=== PATIENT | male | born 1950 | race Caucasian/White ===

== ENCOUNTER 2023-05-05 10:01 | Inpatient (IN) | payer BC, OTHER ==
[2023-05-05 12:49] LABS: EOS % 3.7 % (0-4.5); HEMATOCRIT 22.2 % (35.4-49); LYMPH % 14.9 % (8-40); MCH 29.3 pg (25.7-33.7); MCHC 31.2 g/dl (32.0-35.9); MEAN CELL VOLUME 94.1 fl (80-96); MEAN PLT VOLUME 8.7 fl (7.5-11.1); MONO % 8.2 % (3.8-10.2); NEUT % 72.2 % (42.8-82.8); PLATELET COUNT 193 10^3/uL (134-434); RBC 2.36 M/mm3 (4.00-5.60); RDW 19.2 % (11.9-15.9); RETICULOCYTES 3.55 % (0.5-1.5); WHITE BLOOD COUNT 7.6 K/mm3 (4.0-10.0)
[2023-05-05 12:50] LABS: INR 1.91 (0.83-1.09)
[2023-05-05 12:53] LABS: ACTIVATED PTT 37.2 SECONDS (25.2-36.5); HEMOGLOBIN 6.9 GM/dL (11.7-16.9)
[2023-05-05 13:05] LABS: CALCIUM 9.2 mg/dL (8.5-10.1)
[2023-05-05 13:06] LABS: ALBUMIN 2.4 g/dl (3.4-5.0); BLOOD UREA NITROGEN 89.2 mg/dL (7-18)
[2023-05-05 13:09] LABS: CREATININE 1.8 mg/dL (0.55-1.3)
[2023-05-05 13:10] LABS: BILIRUBIN,TOTAL 0.6 mg/dL (0.2-1); TOT PROT 7.1 g/dl (6.4-8.2)
[2023-05-05] MEDS ORDERED: PANTOPRAZOLE SODIUM 40 MG/100 ML BAG IVPB ONE (15:53)
[2023-05-05] MEDS: PANTOPRAZOLE SODIUM 40 MG VIAL IVPUSH ONE (16:14)
[2023-05-05] MEDS ORDERED: METOPROLOL TARTRATE 50 MG TABLET (FP) ONE (21:40)
[2023-05-05] MEDS ORDERED: ATORVASTATIN CA 40 MG TABLET (FP) ONE (21:41)
[2023-05-05] MEDS: ATORVASTATIN CA 40 MG TABLET (FP) PO SCH (21:49)
[2023-05-05] MEDS: METOPROLOL TARTRATE 50 MG TABLET (FP) PO SCH (21:50)
[2023-05-05] MEDS: INSULIN ASPART SLIDING SCALE (NOVOLOG) 1 VIAL SQ SCH (21:50)
[2023-05-06 10:00] LABS: BASO % 0.8 % (0-2.0); EOS % 3.4 % (0-4.5); HEMATOCRIT 27.6 % (35.4-49); HEMOGLOBIN 8.8 GM/dL (11.7-16.9); LYMPH % 14.5 % (8-40); MCH 29.7 pg (25.7-33.7); MCHC 31.9 g/dl (32.0-35.9); MEAN CELL VOLUME 93.1 fl (80-96); MEAN PLT VOLUME 8.8 fl (7.5-11.1); MONO % 7.4 % (3.8-10.2); NEUT % 73.9 % (42.8-82.8); PLATELET COUNT 213 10^3/uL (134-434); RBC 2.96 M/mm3 (4.00-5.60); RDW 18.9 % (11.9-15.9)
[2023-05-06] MEDS: POLYETHYLENE GLYCOL (HEALTHYLAX) 3350 17 GM PACKET PO SCH (10:06)
[2023-05-06] MEDS: SEVELAMER CARBONATE 800 MG TAB (FP) PO SCH (10:06)
[2023-05-06] MEDS: BUPRENORPHINE/NALOXONE 2 MG/0.5 MG FILM PACKET SL SCH (10:06)
[2023-05-06 11:07] LABS: POTASSIUM 4.5 mmol/L (3.5-5.1)
[2023-05-06 11:09] LABS: ALBUMIN 2.7 g/dl (3.4-5.0); BLOOD UREA NITROGEN 75.5 mg/dL (7-18)
[2023-05-06 11:12] LABS: CREATININE 1.9 mg/dL (0.55-1.3); PHOSPHOROUS 3.2 mg/dL (2.5-4.9)
[2023-05-06 11:14] LABS: BILIRUBIN,TOTAL 0.8 mg/dL (0.2-1); TOT PROT 7.9 g/dl (6.4-8.2)
[2023-05-06] MEDS: PATIENT'S OWN MEDICATION (NON-FORMULARY) (Senna Leaf Extract [Senna] 176 MG/5 ML Syrup) GT SCH (12:51)
[2023-05-06] MEDS: PANTOPRAZOLE SODIUM 40 MG VIAL IVPUSH SCH (13:06)
[2023-05-06] MEDS: BACITRACIN ZINC 15 GM TUBE TOPICAL OINTMENT TP SCH (15:30)
[2023-05-06] MEDS ORDERED: INSULIN (NOVOLOG) ASPART 100 UNITS/ML 10ML VIAL ONE (21:26)
[2023-05-07 08:25] LABS: EOS % 3.3 % (0-4.5); LYMPH % 15.3 % (8-40); MCH 30.7 pg (25.7-33.7); MCHC 33.4 g/dl (32.0-35.9); MEAN CELL VOLUME 91.8 fl (80-96); MEAN PLT VOLUME 8.6 fl (7.5-11.1); MONO % 9.2 % (3.8-10.2); NEUT % 71.2 % (42.8-82.8); PLATELET COUNT 182 10^3/uL (134-434); POTASSIUM 4.6 mmol/L (3.5-5.1); RBC 2.62 M/mm3 (4.00-5.60); RDW 18.5 % (11.9-15.9); WHITE BLOOD COUNT 7.7 K/mm3 (4.0-10.0)
[2023-05-07 08:34] LABS: CALCIUM 8.5 mg/dL (8.5-10.1)
[2023-05-07 08:35] LABS: ALBUMIN 2.6 g/dl (3.4-5.0); BLOOD UREA NITROGEN 71.4 mg/dL (7-18); MAGNESIUM 2.2 mg/dL (1.8-2.4)
[2023-05-07 08:37] LABS: CREATININE 1.7 mg/dL (0.55-1.3)
[2023-05-07 08:39] LABS: BILIRUBIN,TOTAL 0.8 mg/dL (0.2-1); TOT PROT 6.9 g/dl (6.4-8.2)
[2023-05-07 11:15] VITALS: BMI 24.5
[2023-05-07] MEDS ORDERED: INSULIN (NOVOLOG) ASPART 100 UNITS/ML 10ML VIAL ONE (12:04)
[2023-05-07 12:51] LABS: INR 1.51 (0.83-1.09); PROTHROMBIN TIME (PATIENT) 17.4 SEC (9.7-13.0)
[2023-05-07] MEDS: ACETAMINOPHEN 500 MG TABLET (FP) PO ONE (13:25)
[2023-05-07] MEDS: HEPARIN NA (PORCINE) 5,000 UNITS/ML 1ML VIAL SQ SCH (21:27)
[2023-05-08] MEDS: ACETAMINOPHEN 1000 MG/100 ML BAG IVPB ONE (05:35)
[2023-05-08 07:36] LABS: BASO % 0.8 % (0-2.0); EOS % 3.5 % (0-4.5); HEMATOCRIT 25.1 % (35.4-49); HEMOGLOBIN 8.1 GM/dL (11.7-16.9); MCHC 32.4 g/dl (32.0-35.9); MEAN CELL VOLUME 92.5 fl (80-96); MEAN PLT VOLUME 8.4 fl (7.5-11.1); NEUT % 74.7 % (42.8-82.8); PLATELET COUNT 191 10^3/uL (134-434); RBC 2.71 M/mm3 (4.00-5.60); RDW 18.9 % (11.9-15.9); WHITE BLOOD COUNT 8.1 K/mm3 (4.0-10.0)
[2023-05-08 07:41] LABS: INR 1.53 (0.83-1.09); PROTHROMBIN TIME (PATIENT) 17.7 SEC (9.7-13.0)
[2023-05-08 07:43] LABS: POTASSIUM 4.6 mmol/L (3.5-5.1)
[2023-05-08 07:47] LABS: ALBUMIN 2.4 g/dl (3.4-5.0); BLOOD UREA NITROGEN 66.4 mg/dL (7-18); CALCIUM 8.4 mg/dL (8.5-10.1); MAGNESIUM 2.1 mg/dL (1.8-2.4)
[2023-05-08 07:51] LABS: CREATININE 1.6 mg/dL (0.55-1.3)
[2023-05-08 07:53] LABS: BILIRUBIN,TOTAL 0.8 mg/dL (0.2-1); TOT PROT 6.7 g/dl (6.4-8.2)
[2023-05-09] MEDS ORDERED: INSULIN (NOVOLOG) ASPART 100 UNITS/ML 10ML VIAL ONE ×2 (06:32→09:13)
[2023-05-09 09:19] LABS: EOS % 2.9 % (0-4.5); HEMATOCRIT 26.3 % (35.4-49); HEMOGLOBIN 8.5 GM/dL (11.7-16.9); LYMPH % 16.9 % (8-40); MCH 30.3 pg (25.7-33.7); MCHC 32.4 g/dl (32.0-35.9); MEAN CELL VOLUME 93.4 fl (80-96); MEAN PLT VOLUME 8.7 fl (7.5-11.1); MONO % 7.8 % (3.8-10.2); NEUT % 71.4 % (42.8-82.8); PLATELET COUNT 207 10^3/uL (134-434); RBC 2.82 M/mm3 (4.00-5.60); RDW 18.5 % (11.9-15.9); WHITE BLOOD COUNT 9.9 K/mm3 (4.0-10.0)
[2023-05-09 09:41] LABS: CHLORIDE 104 mmol/L (98-107); POTASSIUM 5.2 mmol/L (3.5-5.1); SODIUM 138 mmol/L (136-145)
[2023-05-09 10:01] LABS: ALBUMIN 2.6 g/dl (3.4-5.0); ANION GAP 11 mmol/L (4-13); BLOOD UREA NITROGEN 66.8 mg/dL (7-18); CALCIUM 9.1 mg/dL (8.5-10.1); CO2 22 mmol/L (21-32); GLUCOSE,RANDOM 131 mg/dL (74-106)
[2023-05-09 10:03] LABS: CREATININE 1.8 mg/dL (0.55-1.3); SGOT/AST 53 U/L (15-37)
[2023-05-09 10:04] LABS: SGPT/ALT 21 U/L (13-61)
[2023-05-09 10:05] LABS: BILIRUBIN,TOTAL 0.8 mg/dL (0.2-1); TOT PROT 7.4 g/dl (6.4-8.2)
[2023-05-09 10:07] LABS: ALK PHOS 295 U/L (45-117)
[2023-05-09 10:21] LABS: N-TERMINAL BNP > 35000.0 pg/ml (5-125)
[2023-05-09] MEDS: FUROSEMIDE 40 MG/4 ML INJECTABLE VIAL IVPUSH ONE ×2 (12:32→15:27)
[2023-05-09] MEDS: MINERAL OIL/PET HY-PHL TOPICAL OINTMENT 454 GM JAR TP SCH (13:16)
[2023-05-09] MEDS: ACETAMINOPHEN 1000 MG/100 ML BAG IVPB ONE (20:15)
[2023-05-09] MEDS: MELATONIN 1 MG TABLET PO ONE (20:15)
[2023-05-09] MEDS: HEPARIN NA (PORCINE) 5,000 UNITS/ML 1ML VIAL SQ SCH (21:32)
[2023-05-09] MEDS: INSULIN ASPART SLIDING SCALE (NOVOLOG) 1 VIAL SQ SCH (21:32)
[2023-05-09] MEDS: ATORVASTATIN CA 40 MG TABLET (FP) PO SCH (21:32)
[2023-05-09] MEDS: METOPROLOL TARTRATE 50 MG TABLET (FP) PO SCH (21:32)
[2023-05-10] MEDS: MELATONIN 1 MG TABLET PO ONE (04:54)
[2023-05-10] MEDS: ACETAMINOPHEN 1000 MG/100 ML BAG IVPB ONE (04:54)
[2023-05-10] MEDS: FUROSEMIDE 40 MG/4 ML INJECTABLE VIAL IVPUSH SCH (05:06)
[2023-05-10] MEDS ORDERED: FUROSEMIDE 40 MG/4 ML INJECTABLE VIAL IVPUSH SCH (06:00)
[2023-05-10 09:17] LABS: BASO % 1.1 % (0-2.0); EOS % 2.4 % (0-4.5); HEMATOCRIT 25.7 % (35.4-49); HEMOGLOBIN 8.3 GM/dL (11.7-16.9); MCH 29.7 pg (25.7-33.7); MCHC 32.1 g/dl (32.0-35.9); MEAN CELL VOLUME 92.4 fl (80-96); MEAN PLT VOLUME 8.8 fl (7.5-11.1); MONO % 8.9 % (3.8-10.2); NEUT % 72.6 % (42.8-82.8); PLATELET COUNT 191 10^3/uL (134-434); RBC 2.78 M/mm3 (4.00-5.60); RDW 18.1 % (11.9-15.9); WHITE BLOOD COUNT 9.6 K/mm3 (4.0-10.0)
[2023-05-10 10:16] LABS: CHLORIDE 106 mmol/L (98-107); POTASSIUM 4.8 mmol/L (3.5-5.1); SODIUM 140 mmol/L (136-145)
[2023-05-10 10:26] LABS: ALBUMIN 2.4 g/dl (3.4-5.0); ANION GAP 9 mmol/L (4-13); CALCIUM 8.9 mg/dL (8.5-10.1); CO2 25 mmol/L (21-32); GLUCOSE,RANDOM 131 mg/dL (74-106); MAGNESIUM 1.9 mg/dL (1.8-2.4)
[2023-05-10] MEDS: SEVELAMER CARBONATE 800 MG TAB (FP) PO SCH (10:29)
[2023-05-10 10:30] LABS: CREATININE 1.8 mg/dL (0.55-1.3); SGOT/AST 40 U/L (15-37)
[2023-05-10] MEDS: BUPRENORPHINE/NALOXONE 2 MG/0.5 MG FILM PACKET SL SCH (10:30)
[2023-05-10] MEDS: POLYETHYLENE GLYCOL (HEALTHYLAX) 3350 17 GM PACKET PO SCH (10:30)
[2023-05-10] MEDS: BACITRACIN ZINC 15 GM TUBE TOPICAL OINTMENT TP SCH (10:30)
[2023-05-10] MEDS: MINERAL OIL/PET HY-PHL TOPICAL OINTMENT 454 GM JAR TP SCH (10:30)
[2023-05-10] MEDS: PANTOPRAZOLE SODIUM 40 MG VIAL IVPUSH SCH (10:30)
[2023-05-10 10:31] LABS: BILIRUBIN,TOTAL 0.8 mg/dL (0.2-1); SGPT/ALT 19 U/L (13-61); TOT PROT 6.9 g/dl (6.4-8.2)
[2023-05-10 10:32] LABS: ALK PHOS 267 U/L (45-117)
[2023-05-10 10:37] LABS: N-TERMINAL BNP > 35000.0 pg/ml (5-125)
[2023-05-10 16:44] LABS: INR 1.5 (0.83-1.09); PROTHROMBIN TIME (PATIENT) 17.3 SEC (9.7-13.0)
[2023-05-10 16:47] LABS: ACTIVATED PTT 36.1 SECONDS (25.2-36.5)
[2023-05-10 16:50] LABS: BF WBC & OTHER NUCLEATED CELLS 340 /mm3; BODY FLUID MACROPHAGES 3 %; BODY FLUID MESOTHELIAL 5 %; BODY FLUID MONOCYTE 43 %
[2023-05-11 08:39] LABS: BASO % 0.8 % (0-2.0); EOS % 2.2 % (0-4.5); HEMATOCRIT 26.8 % (35.4-49); HEMOGLOBIN 8.8 GM/dL (11.7-16.9); MCH 30.2 pg (25.7-33.7); MCHC 32.8 g/dl (32.0-35.9); MEAN PLT VOLUME 8.7 fl (7.5-11.1); MONO % 8.5 % (3.8-10.2); NEUT % 71.5 % (42.8-82.8); PLATELET COUNT 200 10^3/uL (134-434); RBC 2.92 M/mm3 (4.00-5.60); RDW 18.2 % (11.9-15.9); WHITE BLOOD COUNT 9.6 K/mm3 (4.0-10.0)
[2023-05-11 08:53] LABS: CHLORIDE 105 mmol/L (98-107); POTASSIUM 4.7 mmol/L (3.5-5.1); SODIUM 140 mmol/L (136-145)
[2023-05-11 09:05] LABS: BLOOD UREA NITROGEN 64.3 mg/dL (7-18)
[2023-05-11 09:06] LABS: ALBUMIN 2.6 g/dl (3.4-5.0); ANION GAP 10 mmol/L (4-13); CO2 25 mmol/L (21-32); GLUCOSE,RANDOM 153 mg/dL (74-106)
[2023-05-11 09:09] LABS: CALCIUM 9.5 mg/dL (8.5-10.1); CREATININE 1.9 mg/dL (0.55-1.3); MAGNESIUM 1.8 mg/dL (1.8-2.4); SGOT/AST 41 U/L (15-37); SGPT/ALT 20 U/L (13-61)
[2023-05-11 09:10] LABS: BILIRUBIN,TOTAL 0.8 mg/dL (0.2-1); TOT PROT 7.5 g/dl (6.4-8.2)
[2023-05-11 09:11] LABS: ALK PHOS 291 U/L (45-117)
[2023-05-11 09:21] LABS: N-TERMINAL BNP > 35000.0 pg/ml (5-125)
[2023-05-11 14:43] LABS: EPI CELLS 7 /uL (0-25.1); HYALINE CASTS 0 /uL (0-3.1); URINE APPEARANCE CLEAR; URINE BACTERIA 353 /uL (0-1359); URINE BILIRUBIN NEGATIVE (NEGATIVE); URINE COLOR YELLOW; URINE GLUCOSE (UA) NEGATIVE (NEGATIVE); URINE KETONE NEGATIVE (NEGATIVE); URINE LEUK ESTERASE 1+ (NEGATIVE); URINE NITRITE NEGATIVE (NEGATIVE); URINE PROTEIN TRACE (NEGATIVE); URINE RBC 5 /uL (0-23.9); URINE UROBILINOGEN 0.2 mg/dL (0.2-1.0); URINE WBC 61 /uL (0-25.8)
[2023-05-11] MEDS: ACETAMINOPHEN 1000 MG/100 ML BAG IVPB ONE (21:29)
[2023-05-12 07:49] LABS: BASO % 1.2 % (0-2.0); EOS % 3.3 % (0-4.5); HEMATOCRIT 27.3 % (35.4-49); HEMOGLOBIN 8.9 GM/dL (11.7-16.9); LYMPH % 17.3 % (8-40); MCH 30.3 pg (25.7-33.7); MCHC 32.6 g/dl (32.0-35.9); MEAN PLT VOLUME 8.2 fl (7.5-11.1); MONO % 8.3 % (3.8-10.2); NEUT % 69.9 % (42.8-82.8); PLATELET COUNT 202 10^3/uL (134-434); RBC 2.93 M/mm3 (4.00-5.60); RDW 18.1 % (11.9-15.9); WHITE BLOOD COUNT 10.6 K/mm3 (4.0-10.0)
[2023-05-12 07:54] LABS: POTASSIUM 4.5 mmol/L (3.5-5.1)
[2023-05-12 07:55] LABS: CALCIUM 9.1 mg/dL (8.5-10.1)
[2023-05-12 07:56] LABS: ALBUMIN 2.7 g/dl (3.4-5.0); BLOOD UREA NITROGEN 62.4 mg/dL (7-18)
[2023-05-12 07:59] LABS: CREATININE 1.9 mg/dL (0.55-1.3)
[2023-05-12 08:01] LABS: BILIRUBIN,TOTAL 0.8 mg/dL (0.2-1); TOT PROT 7.5 g/dl (6.4-8.2)
[2023-05-12] MEDS: SPIRONOLACTONE 25 MG TABLET PO SCH (09:30)
[2023-05-12 17:07] LABS: BODY FLUID ALBUMIN 1.5 g/dL (Not Estab.)
[2023-05-13 08:54] LABS: BASO % 1.2 % (0-2.0); EOS % 2.3 % (0-4.5); HEMOGLOBIN 8.3 GM/dL (11.7-16.9); LYMPH % 17.9 % (8-40); MCH 29.5 pg (25.7-33.7); MEAN CELL VOLUME 92.1 fl (80-96); MEAN PLT VOLUME 8.4 fl (7.5-11.1); MONO % 8.6 % (3.8-10.2); PLATELET COUNT 192 10^3/uL (134-434); RBC 2.82 M/mm3 (4.00-5.60); RDW 17.8 % (11.9-15.9); WHITE BLOOD COUNT 9.6 K/mm3 (4.0-10.0)
[2023-05-13 09:06] LABS: POTASSIUM 4.4 mmol/L (3.5-5.1)
[2023-05-13 09:12] LABS: CALCIUM 8.8 mg/dL (8.5-10.1)
[2023-05-13 09:13] LABS: ALBUMIN 2.5 g/dl (3.4-5.0); BLOOD UREA NITROGEN 60.3 mg/dL (7-18)
[2023-05-13 09:16] LABS: CREATININE 1.9 mg/dL (0.55-1.3)
[2023-05-13 09:18] LABS: BILIRUBIN,TOTAL 0.7 mg/dL (0.2-1); TOT PROT 7.1 g/dl (6.4-8.2)
[2023-05-13] MEDS ORDERED: ONDANSETRON 4 MG/2 ML VIAL IVPUSH PRN (12:19)
[2023-05-13] MEDS ORDERED: EPOETIN ALFA 10,000 UNIT/1 ML VIAL SQ ONE (13:00)
[2023-05-13] MEDS: EPOETIN ALFA-EPBX 10,000 UNIT/ML VIAL SQ ONE (15:20)
[2023-05-13] MEDS: ALBUTEROL SO4 2.5/IPRATROPIUM 0.5 INH SOL 3 ML VIAL.NEB. NEB SCH (15:42)
[2023-05-13] MEDS ORDERED: INSULIN ASPART SLIDING SCALE (NOVOLOG) 1 VIAL SQ ONE (21:22)
[2023-05-13] MEDS: HALOPERIDOL 0.5 MG TABLET PO PRN (21:28)
[2023-05-14] MEDS: ALBUTEROL SO4 0.042% IH SOL 1.25 MG/3 ML VIAL.NEB NEB SCH (07:44)
[2023-05-14] MEDS: IPRATROPIUM BR 0.02% 0.5 MG/2.5 ML VIAL.NEB. NEB SCH (07:44)
[2023-05-14 10:55] LABS: HEMOGLOBIN 8.5 GM/dL (11.7-16.9); MCH 29.9 pg (25.7-33.7); MCHC 32.8 g/dl (32.0-35.9); MEAN CELL VOLUME 91.3 fl (80-96); MEAN PLT VOLUME 8.4 fl (7.5-11.1); PLATELET COUNT 179 10^3/uL (134-434); RBC 2.84 M/mm3 (4.00-5.60); WHITE BLOOD COUNT 8.7 K/mm3 (4.0-10.0)
[2023-05-14 11:19] LABS: POTASSIUM 4.5 mmol/L (3.5-5.1)
[2023-05-14 11:26] LABS: ALBUMIN 2.4 g/dl (3.4-5.0); CALCIUM 9.1 mg/dL (8.5-10.1)
[2023-05-14 11:27] LABS: BLOOD UREA NITROGEN 60.4 mg/dL (7-18)
[2023-05-14 11:29] LABS: CREATININE 1.8 mg/dL (0.55-1.3)
[2023-05-14 11:31] LABS: BILIRUBIN,TOTAL 0.8 mg/dL (0.2-1); TOT PROT 7.2 g/dl (6.4-8.2)
[2023-05-14] MEDS: APIXABAN 2.5 MG TABLET PO SCH (21:19)
[2023-05-15] MEDS: MELATONIN 5 MG TABLETS PO PRN (00:53)
[2023-05-15] MEDS: guaiFENesin/D-METHORPHAN HB 10 ML UNIT-DOSE CUPS PO PRN (00:53)
[2023-05-15 08:32] LABS: EOS % 2.3 % (0-4.5); HEMATOCRIT 25.4 % (35.4-49); HEMOGLOBIN 8.2 GM/dL (11.7-16.9); LYMPH % 19.7 % (8-40); MCH 29.6 pg (25.7-33.7); MCHC 32.3 g/dl (32.0-35.9); MEAN CELL VOLUME 91.7 fl (80-96); MONO % 8.1 % (3.8-10.2); NEUT % 68.9 % (42.8-82.8); PLATELET COUNT 176 10^3/uL (134-434); RBC 2.77 M/mm3 (4.00-5.60); RDW 17.9 % (11.9-15.9); WHITE BLOOD COUNT 9.9 K/mm3 (4.0-10.0)
[2023-05-15 08:35] LABS: POTASSIUM 4.4 mmol/L (3.5-5.1)
[2023-05-15 08:37] LABS: BLOOD UREA NITROGEN 58.4 mg/dL (7-18); CALCIUM 8.4 mg/dL (8.5-10.1)
[2023-05-15 08:41] LABS: CREATININE 1.8 mg/dL (0.55-1.3)
[2023-05-15] MEDS ORDERED: IPRATROPIUM BR 0.02% 0.5 MG/2.5 ML VIAL.NEB. NEB ONE (09:31)
[2023-05-15] MEDS: PANTOPRAZOLE 40 MG TABLET PO SCH (09:48)
[2023-05-16 08:25] LABS: BASO % 1.1 % (0-2.0); EOS % 2.2 % (0-4.5); HEMOGLOBIN 8.1 GM/dL (11.7-16.9); LYMPH % 16.6 % (8-40); MCH 29.6 pg (25.7-33.7); MCHC 32.4 g/dl (32.0-35.9); MEAN CELL VOLUME 91.3 fl (80-96); MEAN PLT VOLUME 8.5 fl (7.5-11.1); MONO % 7.8 % (3.8-10.2); NEUT % 72.3 % (42.8-82.8); PLATELET COUNT 172 10^3/uL (134-434); RBC 2.74 M/mm3 (4.00-5.60); RDW 18.1 % (11.9-15.9); WHITE BLOOD COUNT 10.4 K/mm3 (4.0-10.0)
[2023-05-16 08:37] LABS: POTASSIUM 4.4 mmol/L (3.5-5.1)
[2023-05-16 08:41] LABS: CALCIUM 8.8 mg/dL (8.5-10.1)
[2023-05-16 08:42] LABS: BLOOD UREA NITROGEN 57.4 mg/dL (7-18)
[2023-05-16 08:45] LABS: CREATININE 1.8 mg/dL (0.55-1.3)
[2023-05-17 08:48] LABS: BASO % 1.2 % (0-2.0); EOS % 2.4 % (0-4.5); HEMATOCRIT 25.6 % (35.4-49); HEMOGLOBIN 8.2 GM/dL (11.7-16.9); LYMPH % 17.3 % (8-40); MCH 29.5 pg (25.7-33.7); MCHC 32.1 g/dl (32.0-35.9); MEAN CELL VOLUME 91.9 fl (80-96); MEAN PLT VOLUME 8.7 fl (7.5-11.1); MONO % 7.8 % (3.8-10.2); NEUT % 71.3 % (42.8-82.8); PLATELET COUNT 171 10^3/uL (134-434); RBC 2.79 M/mm3 (4.00-5.60); RDW 17.8 % (11.9-15.9); WHITE BLOOD COUNT 10.3 K/mm3 (4.0-10.0)
[2023-05-17 09:24] LABS: POTASSIUM 4.5 mmol/L (3.5-5.1)
[2023-05-17 09:28] LABS: BLOOD UREA NITROGEN 55.8 mg/dL (7-18)
[2023-05-17 09:31] LABS: CREATININE 1.8 mg/dL (0.55-1.3)
[2023-05-17] MEDS: ALBUTEROL SO4 2.5/IPRATROPIUM 0.5 INH SOL 3 ML VIAL.NEB. NEB PRN (11:15)
[2023-05-18] MEDS: ACETAMINOPHEN 325 MG TABLET (FP) PO PRN (03:51)
[2023-05-18 07:42] LABS: BASO % 1.2 % (0-2.0); EOS % 2.5 % (0-4.5); HEMATOCRIT 24.7 % (35.4-49); LYMPH % 15.5 % (8-40); MCH 29.3 pg (25.7-33.7); MCHC 32.2 g/dl (32.0-35.9); MEAN CELL VOLUME 90.9 fl (80-96); MEAN PLT VOLUME 7.8 fl (7.5-11.1); MONO % 7.3 % (3.8-10.2); NEUT % 73.5 % (42.8-82.8); PLATELET COUNT 160 10^3/uL (134-434); RBC 2.72 M/mm3 (4.00-5.60); RDW 17.7 % (11.9-15.9); WHITE BLOOD COUNT 9.1 K/mm3 (4.0-10.0)
[2023-05-18 08:25] LABS: POTASSIUM 4.5 mmol/L (3.5-5.1)
[2023-05-18 08:34] LABS: BLOOD UREA NITROGEN 54.9 mg/dL (7-18); CALCIUM 8.3 mg/dL (8.5-10.1)
[2023-05-18 08:37] LABS: CREATININE 1.9 mg/dL (0.55-1.3)
[2023-05-18] MEDS: FUROSEMIDE 40 MG TABLET (FP) PO SCH (13:34)
[2023-05-18] MEDS: HALOPERIDOL LACTATE 5 MG/ML IM ONE (20:39)
[2023-05-19 09:12] LABS: BASO % 0.9 % (0-2.0); EOS % 1.1 % (0-4.5); HEMATOCRIT 24.9 % (35.4-49); HEMOGLOBIN 8.1 GM/dL (11.7-16.9); LYMPH % 17.4 % (8-40); MCH 29.8 pg (25.7-33.7); MCHC 32.6 g/dl (32.0-35.9); MEAN CELL VOLUME 91.3 fl (80-96); MEAN PLT VOLUME 8.7 fl (7.5-11.1); MONO % 7.7 % (3.8-10.2); NEUT % 72.9 % (42.8-82.8); PLATELET COUNT 165 10^3/uL (134-434); RBC 2.73 M/mm3 (4.00-5.60); RDW 18.2 % (11.9-15.9); WHITE BLOOD COUNT 9.8 K/mm3 (4.0-10.0)
[2023-05-19 09:30] LABS: POTASSIUM 4.6 mmol/L (3.5-5.1)
[2023-05-19 09:41] LABS: ALBUMIN 2.4 g/dl (3.4-5.0); CALCIUM 8.3 mg/dL (8.5-10.1)
[2023-05-19 09:42] LABS: BLOOD UREA NITROGEN 57.4 mg/dL (7-18); MAGNESIUM 1.5 mg/dL (1.8-2.4)
[2023-05-19 09:44] LABS: CREATININE 2.1 mg/dL (0.55-1.3)
[2023-05-19 09:46] LABS: BILIRUBIN,TOTAL 0.8 mg/dL (0.2-1); TOT PROT 6.9 g/dl (6.4-8.2)
[2023-05-19] MEDS: MAGNESIUM SULFATE IN WATER 2 GM/50 ML IVPB IVPB ONE (10:24)
[2023-05-19] MEDS: IRON SUCROSE INJECTION 100 MG in SODIUM CHLORIDE 95 ML IVPB ONE (11:28)
[2023-05-19] MEDS: MINERAL OIL/PET HY-PHL TOPICAL OINTMENT 454 GM JAR TP SCH (11:29)
[2023-05-19] MEDS: EPOETIN ALFA-EPBX 10,000 UNIT/ML VIAL SQ ONE (12:52)
[2023-05-20 09:10] LABS: EOS % 1.8 % (0-4.5); HEMATOCRIT 25.3 % (35.4-49); HEMOGLOBIN 8.1 GM/dL (11.7-16.9); LYMPH % 15.6 % (8-40); MCH 29.3 pg (25.7-33.7); MEAN CELL VOLUME 91.4 fl (80-96); MEAN PLT VOLUME 8.6 fl (7.5-11.1); MONO % 6.3 % (3.8-10.2); NEUT % 75.3 % (42.8-82.8); PLATELET COUNT 171 10^3/uL (134-434); RBC 2.76 M/mm3 (4.00-5.60); RDW 18.1 % (11.9-15.9); WHITE BLOOD COUNT 9.6 K/mm3 (4.0-10.0)
[2023-05-20 09:33] LABS: POTASSIUM 4.8 mmol/L (3.5-5.1)
[2023-05-20 09:35] LABS: CALCIUM 8.5 mg/dL (8.5-10.1)
[2023-05-20 09:36] LABS: ALBUMIN 2.6 g/dl (3.4-5.0); BLOOD UREA NITROGEN 57.7 mg/dL (7-18); MAGNESIUM 2.1 mg/dL (1.8-2.4)
[2023-05-20 09:39] LABS: CREATININE 2.2 mg/dL (0.55-1.3)
[2023-05-20 09:40] LABS: BILIRUBIN,TOTAL 0.8 mg/dL (0.2-1); TOT PROT 7.4 g/dl (6.4-8.2)
[2023-05-20] MEDS: METHYL SALICYLATE/MENTHOL OINT 30 GM TUBE TP SCH (12:15)
[2023-05-20] MEDS: IRON SUCROSE INJECTION 200 MG in SODIUM CHLORIDE 90 ML IVPB ONE (12:28)
[2023-05-21] MEDS: AMINO ACIDS/PROTEIN HYDROLYS 30 ML LIQUID.PKT PO SCH (08:04)
[2023-05-21] MEDS: FERROUS SO4 325 MG TABLET (FP) PO SCH (08:04)
[2023-05-21] MEDS: VITAMIN B COMP W-C 1 EA TABLET (NEPHRO-VITE) PO SCH (09:50)
[2023-05-21] MEDS: methylPREDNISolone NA SUCC 40 MG/1 ML VIAL IVPUSH SCH (13:18)
[2023-05-21] MEDS: FUROSEMIDE 40 MG/4 ML INJECTABLE VIAL IVPUSH SCH (14:18)
[2023-05-21] MEDS: LEVALBUTEROL HCL 0.31 MG/3 ML VIAL.NEB IH SCH (14:38)
[2023-05-21] MEDS: INSULIN ASPART SLIDING SCALE (NOVOLOG) 1 VIAL SQ SCH (16:33)
[2023-05-22 07:39] LABS: BASO % 0.1 % (0-2.0); HEMATOCRIT 26.4 % (35.4-49); HEMOGLOBIN 8.5 GM/dL (11.7-16.9); LYMPH % 8.9 % (8-40); MCH 29.6 pg (25.7-33.7); MCHC 32.3 g/dl (32.0-35.9); MEAN CELL VOLUME 91.6 fl (80-96); MEAN PLT VOLUME 9.1 fl (7.5-11.1); PLATELET COUNT 198 10^3/uL (134-434); RBC 2.89 M/mm3 (4.00-5.60); RDW 18.8 % (11.9-15.9); WHITE BLOOD COUNT 8.4 K/mm3 (4.0-10.0)
[2023-05-22 07:59] LABS: POTASSIUM 5.6 mmol/L (3.5-5.1)
[2023-05-22 08:05] LABS: CALCIUM 8.8 mg/dL (8.5-10.1)
[2023-05-22 08:06] LABS: ALBUMIN 2.7 g/dl (3.4-5.0); BLOOD UREA NITROGEN 75.9 mg/dL (7-18)
[2023-05-22 08:09] LABS: CREATININE 2.4 mg/dL (0.55-1.3)
[2023-05-22 08:10] LABS: TOT PROT 7.6 g/dl (6.4-8.2)
[2023-05-22] MEDS: SODIUM ZIRCONIUM CYCLOSILICATE (LOKELMA) 5 GM PACKET PO SCH (09:54)
[2023-05-22] MEDS: AMOX TR/POT CLAV 875MG/125MG TABLETS (FP) PO SCH (09:55)
[2023-05-22] MEDS ORDERED: INSULIN ASPART SLIDING SCALE (NOVOLOG) 1 VIAL SQ SCH ×2 (11:23→17:10)
[2023-05-22] MEDS: INSULIN ASPART SLIDING SCALE (NOVOLOG) 1 VIAL SQ SCH ×2 (17:46→21:41)
[2023-05-22] MEDS: INSULIN (NOVOLOG) ASPART 100 UNITS/ML 10ML VIAL SQ ONE (18:27)
[2023-05-22] MEDS: INSULIN (LEVEMIR) 100 UNITS/ML UNITS SQ SCH (21:44)
[2023-05-23 08:06] LABS: HEMATOCRIT 25.6 % (35.4-49); HEMOGLOBIN 8.4 GM/dL (11.7-16.9); MCHC 32.9 g/dl (32.0-35.9); MEAN CELL VOLUME 91.2 fl (80-96); MEAN PLT VOLUME 8.9 fl (7.5-11.1); PLATELET COUNT 196 10^3/uL (134-434); RDW 18.5 % (11.9-15.9); WHITE BLOOD COUNT 8.8 K/mm3 (4.0-10.0)
[2023-05-23 08:19] LABS: POTASSIUM 5.3 mmol/L (3.5-5.1)
[2023-05-23 08:24] LABS: BLOOD UREA NITROGEN 93.2 mg/dL (7-18)
[2023-05-23 08:25] LABS: ALBUMIN 2.7 g/dl (3.4-5.0); MAGNESIUM 2.1 mg/dL (1.8-2.4)
[2023-05-23 08:27] LABS: CREATININE 2.7 mg/dL (0.55-1.3)
[2023-05-23 08:29] LABS: BILIRUBIN,TOTAL 0.8 mg/dL (0.2-1); TOT PROT 7.8 g/dl (6.4-8.2)
[2023-05-23] MEDS: INSULIN (LEVEMIR) 100 UNITS/ML UNITS SQ SCH (09:52)
[2023-05-23 09:55] LABS: ANISOCYTOSIS 0; HELMET CELLS 0; HOWELL-JOLLY BODIES 0; MACROCYTOSIS 0; OVALOCYTE 0; ROULEAU 0; SICKELED CELLS 0; TARGET CELLS 0; TEAR DROP CELLS 0; TOXIC GRANULATION 0
[2023-05-23] MEDS: AMPICILLIN NA/SULBACTAM NA 1.5 GM in SODIUM CHLORIDE 100 ML IVPB SCH ×2 (16:12→17:56)
[2023-05-23] MEDS: INSULIN (NOVOLOG) ASPART 100 UNITS/ML 10ML VIAL SQ SCH (17:01)
[2023-05-23] MEDS: INSULIN ASPART SLIDING SCALE (NOVOLOG) 1 VIAL SQ SCH (17:01)
[2023-05-23] MEDS: SODIUM CHLORIDE 1,000 ML IV SCH (17:02)
[2023-05-24] MEDS: INSULIN ASPART SLIDING SCALE (NOVOLOG) 1 VIAL SQ SCH ×3 (06:59→21:56)
[2023-05-24] MEDS: INSULIN (NOVOLOG) ASPART 100 UNITS/ML 10ML VIAL SQ SCH (07:00)
[2023-05-24 07:25] LABS: BASO % 0.1 % (0-2.0); HEMATOCRIT 25.4 % (35.4-49); HEMOGLOBIN 8.5 GM/dL (11.7-16.9); LYMPH % 6.3 % (8-40); MCH 30.7 pg (25.7-33.7); MCHC 33.4 g/dl (32.0-35.9); MEAN CELL VOLUME 92.1 fl (80-96); MEAN PLT VOLUME 8.8 fl (7.5-11.1); MONO % 6.9 % (3.8-10.2); NEUT % 86.7 % (42.8-82.8); PLATELET COUNT 186 10^3/uL (134-434); RBC 2.76 M/mm3 (4.00-5.60); RDW 18.3 % (11.9-15.9); WHITE BLOOD COUNT 9.7 K/mm3 (4.0-10.0)
[2023-05-24 07:41] LABS: CHLORIDE 94 mmol/L (98-107); POTASSIUM 4.9 mmol/L (3.5-5.1); SODIUM 129 mmol/L (136-145)
[2023-05-24 07:43] LABS: CALCIUM 8.9 mg/dL (8.5-10.1)
[2023-05-24 07:44] LABS: ALBUMIN 2.7 g/dl (3.4-5.0); ANION GAP 14 mmol/L (4-13); BLOOD UREA NITROGEN 99.9 mg/dL (7-18); CO2 21 mmol/L (21-32); MAGNESIUM 2.1 mg/dL (1.8-2.4)
[2023-05-24 07:47] LABS: CREATININE 2.6 mg/dL (0.55-1.3); SGOT/AST 30 U/L (15-37); SGPT/ALT 18 U/L (13-61)
[2023-05-24 07:49] LABS: BILIRUBIN,TOTAL 0.7 mg/dL (0.2-1); TOT PROT 7.4 g/dl (6.4-8.2)
[2023-05-24 07:50] LABS: ALK PHOS 317 U/L (45-117)
[2023-05-24 07:58] LABS: GLUCOSE,RANDOM 411 mg/dL (74-106)
[2023-05-24] MEDS: INSULIN (NOVOLOG) ASPART 100 UNITS/ML 10ML VIAL SQ ONE (09:17)
[2023-05-24] MEDS: INSULIN (LEVEMIR) 100 UNITS/ML UNITS SQ SCH (09:48)
[2023-05-24] MEDS: methylPREDNISolone NA SUCC 40 MG/1 ML VIAL IVPUSH SCH (09:50)
[2023-05-24] MEDS ORDERED: ATORVASTATIN CA 20 MG TABLET (FP) ONE (21:15)
[2023-05-25 06:56] LABS: HEMATOCRIT 26.8 % (35.4-49); HEMOGLOBIN 8.9 GM/dL (11.7-16.9); LYMPH % 8.5 % (8-40); MCH 30.6 pg (25.7-33.7); MCHC 33.1 g/dl (32.0-35.9); MEAN CELL VOLUME 92.3 fl (80-96); MEAN PLT VOLUME 8.5 fl (7.5-11.1); MONO % 8.1 % (3.8-10.2); NEUT % 83.4 % (42.8-82.8); PLATELET COUNT 202 10^3/uL (134-434); WHITE BLOOD COUNT 10.2 K/mm3 (4.0-10.0)
[2023-05-25 07:15] LABS: POTASSIUM 4.7 mmol/L (3.5-5.1)
[2023-05-25 07:23] LABS: CALCIUM 8.8 mg/dL (8.5-10.1)
[2023-05-25 07:24] LABS: ALBUMIN 2.6 g/dl (3.4-5.0); BLOOD UREA NITROGEN 102.4 mg/dL (7-18); MAGNESIUM 2.3 mg/dL (1.8-2.4)
[2023-05-25 07:26] LABS: CREATININE 2.3 mg/dL (0.55-1.3)
[2023-05-25 07:28] LABS: BILIRUBIN,TOTAL 0.7 mg/dL (0.2-1); TOT PROT 7.3 g/dl (6.4-8.2)
[2023-05-25] MEDS: INSULIN (LEVEMIR) 100 UNITS/ML UNITS SQ SCH ×2 (09:38→21:32)
[2023-05-25] MEDS: AMPICILLIN NA/SULBACTAM NA 1.5 GM in SODIUM CHLORIDE 100 ML IVPB SCH (09:39)
[2023-05-25] MEDS: AZITHROMYCIN 250 MG TABLET PO SCH (10:43)
[2023-05-25] MEDS ORDERED: INSULIN (NOVOLOG) ASPART 100 UNITS/ML 10ML VIAL ONE (21:13)
[2023-05-26 06:39] LABS: BASO % 0.2 % (0-2.0); EOS % 0.2 % (0-4.5); HEMATOCRIT 27.2 % (35.4-49); LYMPH % 9.3 % (8-40); MCHC 33.1 g/dl (32.0-35.9); MEAN CELL VOLUME 93.5 fl (80-96); MEAN PLT VOLUME 8.5 fl (7.5-11.1); MONO % 7.7 % (3.8-10.2); NEUT % 82.6 % (42.8-82.8); PLATELET COUNT 205 10^3/uL (134-434); RBC 2.91 M/mm3 (4.00-5.60); RDW 19.7 % (11.9-15.9); WHITE BLOOD COUNT 9.6 K/mm3 (4.0-10.0)
[2023-05-26 07:19] LABS: CHLORIDE 104 mmol/L (98-107); POTASSIUM 4.6 mmol/L (3.5-5.1); SODIUM 133 mmol/L (136-145)
[2023-05-26 07:26] LABS: ANION GAP 9 mmol/L (4-13); CALCIUM 8.4 mg/dL (8.5-10.1); CO2 21 mmol/L (21-32)
[2023-05-26 07:27] LABS: GLUCOSE,RANDOM 350 mg/dL (74-106)
[2023-05-26 07:30] LABS: BLOOD UREA NITROGEN 104.4 mg/dL (7-18); CREATININE 2.2 mg/dL (0.55-1.3)
[2023-05-26] MEDS: INSULIN (NOVOLOG) ASPART 100 UNITS/ML 10ML VIAL SQ SCH (11:47)
[2023-05-26 16:39] LABS: ALBUMIN 2.6 g/dl (3.4-5.0); MAGNESIUM 2.2 mg/dL (1.8-2.4)
[2023-05-27 06:42] LABS: HEMATOCRIT 27.1 % (35.4-49); HEMOGLOBIN 8.8 GM/dL (11.7-16.9); MCH 30.3 pg (25.7-33.7); MCHC 32.3 g/dl (32.0-35.9); MEAN CELL VOLUME 93.7 fl (80-96); MEAN PLT VOLUME 8.7 fl (7.5-11.1); PLATELET COUNT 198 10^3/uL (134-434); RDW 20.4 % (11.9-15.9); WHITE BLOOD COUNT 11.3 K/mm3 (4.0-10.0)
[2023-05-27 07:03] LABS: POTASSIUM 4.7 mmol/L (3.5-5.1)
[2023-05-27 07:04] LABS: CALCIUM 7.9 mg/dL (8.5-10.1)
[2023-05-27 07:05] LABS: BLOOD UREA NITROGEN 97.3 mg/dL (7-18); MAGNESIUM 2.1 mg/dL (1.8-2.4)
[2023-05-27 07:08] LABS: CREATININE 2.2 mg/dL (0.55-1.3)
[2023-05-27] MEDS: methylPREDNISolone NA SUCC 40 MG/1 ML VIAL IVPUSH SCH (09:39)
[2023-05-27] MEDS: MELATONIN 5 MG TABLETS PO PRN (21:56)
[2023-05-28 07:09] LABS: HEMATOCRIT 27.6 % (35.4-49); HEMOGLOBIN 8.8 GM/dL (11.7-16.9); MCH 29.8 pg (25.7-33.7); MEAN PLT VOLUME 8.6 fl (7.5-11.1); PLATELET COUNT 201 10^3/uL (134-434); RBC 2.96 M/mm3 (4.00-5.60); WHITE BLOOD COUNT 12.2 K/mm3 (4.0-10.0)
[2023-05-28 07:31] LABS: CALCIUM 8.3 mg/dL (8.5-10.1)
[2023-05-28 07:32] LABS: ALBUMIN 2.5 g/dl (3.4-5.0); BLOOD UREA NITROGEN 93.7 mg/dL (7-18)
[2023-05-28 07:34] LABS: CREATININE 1.9 mg/dL (0.55-1.3)
[2023-05-28 07:36] LABS: BILIRUBIN,TOTAL 0.7 mg/dL (0.2-1)
[2023-05-28] MEDS: INSULIN ASPART SLIDING SCALE (NOVOLOG) 1 VIAL SQ SCH (12:07)
[2023-05-28] MEDS: INSULIN (NOVOLOG) ASPART 100 UNITS/ML 10ML VIAL SQ SCH (12:16)
[2023-05-28] MEDS: FUROSEMIDE 40 MG TABLET (FP) PO SCH (12:49)
[2023-05-28] MEDS ORDERED: INSULIN (NOVOLOG) ASPART 100 UNITS/ML 10ML VIAL ONE (21:11)
[2023-05-28 21:55] VITALS: BP 125/73; PULSE 102; RESP 20; TEMP 98
== END 2023-05-29 00:45 | DRG 811 ==
LOC: JER 10:01 → JERBED 14:40 → J7W 23:12 → J4S 05-09 18:06 → J4W 05-24 01:45
PROVIDERS: ADMIT Internal Medicine; ATTEND Nurse Practitioner
PROC: 30233N1 Transfusion of Nonautologous Red Blood Cells into Peripheral Vein, Percutaneous Approach (ICD-10-PCS; principal; 2023-05-05)
PROC: 0W9G3ZX Drainage of Peritoneal Cavity, Percutaneous Approach, Diagnostic (ICD-10-PCS; 2023-05-10)
DX: D64.9 Anemia, unspecified (principal); I50.23 Acute on chronic systolic (congestive) heart failure; I13.0 Hypertensive heart and chronic kidney disease with heart failure and stage 1 through stage 4 chronic kidney disease, or unspecified chronic kidney disease; E87.1 Hypo-osmolality and hyponatremia; J90 Pleural effusion, not elsewhere classified; R18.8 Other ascites; I47.10 Supraventricular tachycardia, unspecified; J98.11 Atelectasis; R64 Cachexia; E78.5 Hyperlipidemia, unspecified; E11.22 Type 2 diabetes mellitus with diabetic chronic kidney disease; N18.30 Chronic kidney disease, stage 3 unspecified; E87.5 Hyperkalemia; R91.1 Solitary pulmonary nodule; K74.60 Unspecified cirrhosis of liver; E87.70 Fluid overload, unspecified; I48.91 Unspecified atrial fibrillation; E11.65 Type 2 diabetes mellitus with hyperglycemia; Z68.24 Body mass index [BMI] 24.0-24.9, adult
CPT/HCPCS: 0241U-QW; 36415; 36430; 71045-TC-FY; 74176-TC; 74181-TC; 74230-TC-FY; 76700-TC; 76775-TC; 76942-TC; 80048; 80053; 81003; 82040; 82042; 82105; 82140; 82150; 82272; 82465; 82550; 82728; 82945; 82962; 82977; 83540; 83550; 83615; 83735; 83880; 83986; 84100; 84157; 84478; 84484; 85025; 85027; 85045; 85610; 85730; 86704; 86803; 86850; 86900; 86901; 86922; 87070; 87075; 87102; 87116; 87205; 87206; 87210; 87340; 87517; 87522; 87635; 87899; 88108; 88305-TC; 92611-GN; 93005; 93010; 94640; 97116-GP; 97162-GP; 99285-25; J0131; J1644; J1756; P9058; Q5106

== ENCOUNTER 2023-06-28 20:40 | Inpatient (IN) | payer BC, OTHER ==
[2023-06-28 20:50] VITALS: BMI 27.3
[2023-06-28 21:42] LABS: VENOUS PCO2 35.3 mmHg (38-52); VENOUS PH 7.349 (7.310-7.410)
[2023-06-28 21:48] LABS: BASO % 1.3 % (0-2.0); EOS % 1.2 % (0-4.5); HEMATOCRIT 23.7 % (35.4-49); HEMOGLOBIN 7.7 GM/dL (11.7-16.9); MCH 29.4 pg (25.7-33.7); MCHC 32.7 g/dl (32.0-35.9); MEAN CELL VOLUME 89.7 fl (80-96); MEAN PLT VOLUME 7.9 fl (7.5-11.1); MONO % 6.6 % (3.8-10.2); NEUT % 72.9 % (42.8-82.8); PLATELET COUNT 226 10^3/uL (134-434); RBC 2.64 M/mm3 (4.00-5.60); RDW 19.2 % (11.9-15.9); WHITE BLOOD COUNT 8.7 K/mm3 (4.0-10.0)
[2023-06-28 21:55] LABS: INR 1.87 (0.83-1.09); PROTHROMBIN TIME (PATIENT) 21.6 SEC (9.7-13.0)
[2023-06-28 21:58] LABS: ACTIVATED PTT 39.4 SECONDS (25.2-36.5)
[2023-06-28 22:05] LABS: POTASSIUM 5.2 mmol/L (3.5-5.1)
[2023-06-28 22:08] LABS: ALBUMIN 2.4 g/dl (3.4-5.0); BLOOD UREA NITROGEN 61.7 mg/dL (7-18); MAGNESIUM 1.8 mg/dL (1.8-2.4)
[2023-06-28 22:13] LABS: BILIRUBIN,TOTAL 0.7 mg/dL (0.2-1); TOT PROT 6.8 g/dl (6.4-8.2)
[2023-06-28 22:29] LABS: N-TERMINAL BNP 122488.4 pg/ml (5-125)
[2023-06-29] MEDS ORDERED: FUROSEMIDE 40 MG/4 ML INJECTABLE VIAL ONE ×2 (02:03→13:50)
[2023-06-29] MEDS ORDERED: ACETAMINOPHEN INJECTION 100 ML IVPB ONE (02:03)
[2023-06-29] MEDS: FUROSEMIDE 40 MG/4 ML INJECTABLE VIAL IVPUSH ONE ×2 (02:05→13:58)
[2023-06-29] MEDS: ACETAMINOPHEN 1000 MG/100 ML BAG IVPB ONE (02:10)
[2023-06-29] MEDS ORDERED: ALBUTEROL SO4 2.5/IPRATROPIUM 0.5 INH SOL 3 ML VIAL.NEB. NEB ONE (02:44)
[2023-06-29] MEDS ORDERED: PIPERACILLIN/TAZOB 4.5 GM 4.5 GM/100 ML BAG IVPB ONE (02:45)
[2023-06-29] MEDS: morphine CARPU-JECT 2 MG/1 ML DISP.SYRIN IM ONE (02:50)
[2023-06-29] MEDS: PIPERACILLIN/TAZOBACTAM 4.5 GM VIAL IVPB ONE (02:50)
[2023-06-29] MEDS: ALBUTEROL SO4 2.5/IPRATROPIUM 0.5 INH SOL 3 ML VIAL.NEB. NEB ONE (02:50)
[2023-06-29] MEDS ORDERED: VANCOMYCIN 1 GRAM (PRE-DOCKED) 1,000 MG/250 ML BAG IVPB ONE (03:30)
[2023-06-29 03:34] LABS: BASO % 1.1 % (0-2.0); EOS % 0.9 % (0-4.5); HEMATOCRIT 25.5 % (35.4-49); HEMOGLOBIN 8.6 GM/dL (11.7-16.9); MCHC 33.7 g/dl (32.0-35.9); MEAN CELL VOLUME 89.1 fl (80-96); MEAN PLT VOLUME 7.8 fl (7.5-11.1); MONO % 7.8 % (3.8-10.2); NEUT % 71.2 % (42.8-82.8); PLATELET COUNT 210 10^3/uL (134-434); RBC 2.86 M/mm3 (4.00-5.60); RDW 19.2 % (11.9-15.9); WHITE BLOOD COUNT 8.8 K/mm3 (4.0-10.0)
[2023-06-29] MEDS: VANCOMYCIN 1,000 MG in DEXTROSE 5%-WATER - 250 ML IVPB ONE (03:40)
[2023-06-29] MEDS ORDERED: APIXABAN 2.5 MG TABLET ONE (10:09)
[2023-06-29] MEDS ORDERED: PANTOPRAZOLE 40 MG TABLET PO ONE (10:09)
[2023-06-29] MEDS ORDERED: METOPROLOL TARTRATE 50 MG TABLET (FP) ONE (10:10)
[2023-06-29] MEDS: METOPROLOL TARTRATE 50 MG TABLET (FP) PO SCH (10:16)
[2023-06-29] MEDS: VITAMIN B COMP W-C 1 EA TABLET (NEPHRO-VITE) PO SCH (10:16)
[2023-06-29] MEDS: PANTOPRAZOLE 40 MG TABLET PO SCH (10:16)
[2023-06-29] MEDS: APIXABAN 2.5 MG TABLET PO SCH (10:16)
[2023-06-29] MEDS: METHYL SALICYLATE/MENTHOL OINT 30 GM TUBE TP SCH (10:16)
[2023-06-29 10:35] LABS: BASO % 1.3 % (0-2.0); HEMATOCRIT 26.2 % (35.4-49); HEMOGLOBIN 8.7 GM/dL (11.7-16.9); LYMPH % 15.1 % (8-40); MCH 29.5 pg (25.7-33.7); MCHC 33.1 g/dl (32.0-35.9); MEAN CELL VOLUME 89.2 fl (80-96); MEAN PLT VOLUME 7.5 fl (7.5-11.1); MONO % 7.1 % (3.8-10.2); NEUT % 75.5 % (42.8-82.8); PLATELET COUNT 211 10^3/uL (134-434); RBC 2.94 M/mm3 (4.00-5.60); RDW 19.1 % (11.9-15.9); WHITE BLOOD COUNT 8.5 K/mm3 (4.0-10.0)
[2023-06-29 10:53] LABS: POTASSIUM 4.9 mmol/L (3.5-5.1)
[2023-06-29 10:56] LABS: ALBUMIN 2.4 g/dl (3.4-5.0); BLOOD UREA NITROGEN 59.8 mg/dL (7-18)
[2023-06-29 11:00] LABS: TOT PROT 6.9 g/dl (6.4-8.2)
[2023-06-29] MEDS ORDERED: IPRATROPIUM BR 0.02% 0.5 MG/2.5 ML VIAL.NEB. NEB ONE (13:49)
[2023-06-29] MEDS ORDERED: LEVALBUTEROL HCL 0.31 MG/3 ML VIAL.NEB IH ONE (13:49)
[2023-06-29] MEDS: IPRATROPIUM BR 0.02% 0.5 MG/2.5 ML VIAL.NEB. NEB SCH (13:58)
[2023-06-29] MEDS: LEVALBUTEROL HCL 0.31 MG/3 ML VIAL.NEB IH SCH (13:58)
[2023-06-29] MEDS: MELATONIN 5 MG TABLETS PO PRN (21:18)
[2023-06-29] MEDS: traZODone HCL 50 MG TABLET (FP) PO SCH (21:21)
[2023-06-29] MEDS: ATORVASTATIN CA 40 MG TABLET (FP) PO SCH (21:21)
[2023-06-29] MEDS: INSULIN (LEVEMIR) 100 UNITS/ML UNITS SQ SCH (22:23)
[2023-06-30] MEDS: FUROSEMIDE 40 MG/4 ML INJECTABLE VIAL IVPUSH SCH (05:44)
[2023-06-30 07:14] LABS: BASO % 1.2 % (0-2.0); EOS % 1.3 % (0-4.5); HEMATOCRIT 26.2 % (35.4-49); HEMOGLOBIN 8.5 GM/dL (11.7-16.9); MCH 29.3 pg (25.7-33.7); MCHC 32.6 g/dl (32.0-35.9); MEAN CELL VOLUME 89.8 fl (80-96); MEAN PLT VOLUME 8.2 fl (7.5-11.1); MONO % 7.6 % (3.8-10.2); NEUT % 74.9 % (42.8-82.8); PLATELET COUNT 207 10^3/uL (134-434); RBC 2.91 M/mm3 (4.00-5.60); RDW 19.1 % (11.9-15.9); WHITE BLOOD COUNT 8.7 K/mm3 (4.0-10.0)
[2023-06-30 07:24] LABS: POTASSIUM 5.2 mmol/L (3.5-5.1)
[2023-06-30 07:30] LABS: ALBUMIN 2.4 g/dl (3.4-5.0); MAGNESIUM 2.1 mg/dL (1.8-2.4)
[2023-06-30 07:31] LABS: CALCIUM 9.1 mg/dL (8.5-10.1)
[2023-06-30 07:33] LABS: CREATININE 2.1 mg/dL (0.55-1.3)
[2023-06-30 07:35] LABS: BILIRUBIN,TOTAL 0.8 mg/dL (0.2-1); TOT PROT 6.7 g/dl (6.4-8.2)
[2023-06-30] MEDS: DEXTROSE 50%-WATER 25 GM/50 ML DISP.SYRIN IVPUSH ONE ×2 (14:29→17:46)
[2023-07-01 06:55] LABS: BASO % 1.4 % (0-2.0); EOS % 1.5 % (0-4.5); HEMATOCRIT 25.3 % (35.4-49); HEMOGLOBIN 8.3 GM/dL (11.7-16.9); LYMPH % 18.4 % (8-40); MCH 29.5 pg (25.7-33.7); MCHC 32.9 g/dl (32.0-35.9); MEAN CELL VOLUME 89.6 fl (80-96); MEAN PLT VOLUME 8.1 fl (7.5-11.1); MONO % 7.6 % (3.8-10.2); NEUT % 71.1 % (42.8-82.8); PLATELET COUNT 188 10^3/uL (134-434); RBC 2.82 M/mm3 (4.00-5.60); RDW 18.6 % (11.9-15.9); WHITE BLOOD COUNT 7.7 K/mm3 (4.0-10.0)
[2023-07-01 07:03] LABS: POTASSIUM 4.7 mmol/L (3.5-5.1)
[2023-07-01 07:10] LABS: ALBUMIN 2.2 g/dl (3.4-5.0); BLOOD UREA NITROGEN 64.6 mg/dL (7-18); CALCIUM 8.6 mg/dL (8.5-10.1); MAGNESIUM 1.9 mg/dL (1.8-2.4)
[2023-07-01 07:13] LABS: PHOSPHOROUS 3.8 mg/dL (2.5-4.9)
[2023-07-01 07:14] LABS: TOT PROT 6.2 g/dl (6.4-8.2)
[2023-07-01 07:25] LABS: BILIRUBIN,TOTAL 0.9 mg/dL (0.2-1)
[2023-07-01] MEDS: LACTULOSE 20 GM/30 ML UDC (FOR ORAL USE ONLY) PO SCH (14:37)
[2023-07-02 06:47] LABS: BASO % 1.5 % (0-2.0); EOS % 1.8 % (0-4.5); HEMATOCRIT 26.5 % (35.4-49); HEMOGLOBIN 8.6 GM/dL (11.7-16.9); LYMPH % 17.7 % (8-40); MCH 29.4 pg (25.7-33.7); MCHC 32.4 g/dl (32.0-35.9); MEAN CELL VOLUME 90.6 fl (80-96); MEAN PLT VOLUME 8.2 fl (7.5-11.1); MONO % 8.5 % (3.8-10.2); NEUT % 70.5 % (42.8-82.8); PLATELET COUNT 196 10^3/uL (134-434); RBC 2.92 M/mm3 (4.00-5.60); WHITE BLOOD COUNT 7.6 K/mm3 (4.0-10.0)
[2023-07-02 07:00] LABS: POTASSIUM 4.7 mmol/L (3.5-5.1)
[2023-07-02 07:10] LABS: CALCIUM 8.5 mg/dL (8.5-10.1)
[2023-07-02 07:11] LABS: ALBUMIN 2.2 g/dl (3.4-5.0); BLOOD UREA NITROGEN 56.6 mg/dL (7-18); MAGNESIUM 1.9 mg/dL (1.8-2.4)
[2023-07-02 07:14] LABS: CREATININE 2.1 mg/dL (0.55-1.3); PHOSPHOROUS 3.8 mg/dL (2.5-4.9)
[2023-07-02 07:15] LABS: TOT PROT 6.4 g/dl (6.4-8.2)
[2023-07-02 07:18] LABS: BILIRUBIN,TOTAL 0.9 mg/dL (0.2-1)
[2023-07-02] MEDS: SPIRONOLACTONE 25 MG TABLET PO SCH (11:29)
[2023-07-02] MEDS: METOPROLOL TARTRATE 50 MG TABLET (FP) PO SCH (13:18)
[2023-07-02 15:20] VITALS: BP 115/70; PULSE 90; RESP 20; TEMP 97.9
== END 2023-07-02 17:07 | DRG 291 ==
LOC: JER 20:40 → JERBED 23:21 → J4W 06-29 19:52
PROVIDERS: ADMIT Internal Medicine; ATTEND Internal Medicine
DX: I13.0 Hypertensive heart and chronic kidney disease with heart failure and stage 1 through stage 4 chronic kidney disease, or unspecified chronic kidney disease (principal); I50.23 Acute on chronic systolic (congestive) heart failure; J84.9 Interstitial pulmonary disease, unspecified; N18.9 Chronic kidney disease, unspecified; E11.22 Type 2 diabetes mellitus with diabetic chronic kidney disease; I48.91 Unspecified atrial fibrillation; M48.00 Spinal stenosis, site unspecified; E78.5 Hyperlipidemia, unspecified; D64.9 Anemia, unspecified; E11.51 Type 2 diabetes mellitus with diabetic peripheral angiopathy without gangrene; K21.9 Gastro-esophageal reflux disease without esophagitis; F03.90 Unspecified dementia, unspecified severity, without behavioral disturbance, psychotic disturbance, mood disturbance, and anxiety; G47.00 Insomnia, unspecified; K74.69 Other cirrhosis of liver; I25.10 Atherosclerotic heart disease of native coronary artery without angina pectoris; R16.0 Hepatomegaly, not elsewhere classified; D63.8 Anemia in other chronic diseases classified elsewhere; Z95.1 Presence of aortocoronary bypass graft
CPT/HCPCS: 0241U-QW; 36415; 36430; 71045-TC-FY; 71250-TC; 80053; 82140; 82803; 82962; 83036; 83605; 83735; 83880; 84100; 84484; 85025; 85610; 85730; 86850; 86900; 86901; 86922; 87040; 93005; 93010; 94640; 99285-25; J0131; P9058